=== PATIENT | female | born 1940 | race Caucasian/White ===

== ENCOUNTER 2019-08-31 14:09 | Emergency (ER) | payer OTHER, BC ==
[~2019-08-31] VITALS: Ht 165.1 cm; Wt 88.5 kg
[~2019-08-31 14:09] MED LIST: CIPRO250 MG PO; METFORMIN HCL500 MG PO; NEU300 PO
[2019-08-31 14:16] VITALS: Ht 165.1 cm; Wt 88.5 kg
[2019-08-31 16:34] VITALS: BP 114/57
== END 2019-08-31 16:34 | disposition home or self-care (01) ==
LOC: ED 14:09
DX: M25.552 Pain in left hip (principal); M54.42 Lumbago with sciatica, left side; M19.90 Unspecified osteoarthritis, unspecified site; Z98.890 Other specified postprocedural states
CPT/HCPCS: Q0092